=== PATIENT | female | born 1965 | race Caucasian/White ===

== ENCOUNTER 2023-11-29 16:11 | Emergency (ER) | payer OTHER ==
[~2023-11-29] VITALS: Ht 157.5 cm; Wt 61.7 kg
[2023-11-29 16:16] VITALS: BP_SYST 160; PULSE 89; RESP 18; TEMP 98.3; O2SAT 100
[2023-11-29] MEDS: HYDROcodone/ACETAMIN 10-325 MG TAB PO ONE (16:39)
[2023-11-29] MEDS: KETOROLAC TROMETHAMINE 60 MG/2 ML VIAL IM ONE (16:40)
[2023-11-29] MEDS ORDERED: HYDR-3917 PO (17:54)
[2023-11-29] MEDS ORDERED: IBUP-1969 PO (17:54)
== END 2023-11-29 18:01 | disposition home or self-care (01) ==
LOC: SED 16:11
DX: M54.30 Sciatica, unspecified side (principal); M54.50 Low back pain, unspecified; Z79.899 Other long term (current) drug therapy
CPT/HCPCS: 99283; 72100; 96372; J1885